=== PATIENT | female | born 1990 | race Caucasian/White ===

== ENCOUNTER 2023-09-07 13:08 | Emergency (ER) | payer OTHER, SELFPAY ==
[2023-09-07 13:15] VITALS: BP 135/98
[2023-09-07 14:54] VITALS: BMI 22.7
[2023-09-07 14:56] VITALS: BP 115/89
[2023-09-07 15:00] VITALS: BP 112/89
[2023-09-07] MEDS: MAALOX 40 PO (15:06)
[2023-09-07 15:14] LABS: % Basophils 0.6 % (0-2); % Eosinophils 0.7 % (0-6); % Immature Granulocytes 0.4 % (0-0.5); % Lymphocytes 27.6 % (20.5-51.1); % Monocytes 4.2 % (1.7-9.3); % Neutrophils 66.5 % (42.2-75.2); Absolute Basophils 0.1 10^3/uL (0-0.2); Absolute Eosinophils 0.1 10^3/uL (0-0.7); Absolute Lymphocytes 2.3 10^3/uL (1.2-3.4); Absolute Monocytes 0.4 10^3/uL (0.1-0.6); Absolute Neutrophils 5.6 10^3/uL (1.4-6.5); Hemoglobin 13.4 g/dL (12.0-16.0); Mean Corp Hgb Conc. 35.3 g/dL (33.0-37.0); Mean Corpuscular Hgb 30.7 pg (27.0-31.0); Mean Platelet Volume 9.2 fL (7.4-10.4); Nucleated Red Blood Cells % 0 %; Platelet Count 342 10^3/uL (130-400); Red Blood Cell Count 4.37 10^6/uL (4.20-5.40); Red Cell Dist. Width 12.8 % (11.5-14.5); White Blood Cell Count 8.5 10^3/uL (4.8-10.8)
--- NOTE | 2023-09-07 15:28 | ED.GENMED ---
History of Present Illness
General
Chief Complaint: Chest Pain
Source: patient
Exam Limitations: none
Time Seen by Provider: 09/07/23 14:00
Nursing documentation reviewed up to this point in time: agreed with
History of Present Illness
History of Present Illness:
33-year-old female presenting to the emergency department today with concerns of chest pain that been going on for the last few hours this morning went to urgent care was found to have a T wave inversion V1 to V2 and was sent to the ER for further
assessment. On arrival here she still having some ongoing chest pressure denies any associated symptoms otherwise have some tingling into her left arm not short of breath no history of recent trauma surgery immobilization. No history of blood
clots no leg swelling.
Review of Systems
Review of Systems
Allergies reviewed?: Yes
All Other Systems: ROS reviewed and negative except as documented in HPI and ROS
Phy Exam
Physical Exam
Physical Exam:
GENERAL: Alert , in no apparent distress
EYE: pupils equal and reactive
NECK: Supple, no significant adenopathy.
ENT: o/p clr, mmm.
CARDIAC: Regular rate and rhythm .
LUNGS: Clear breath sounds bilaterally, no acute respiratory distress, no wheezes/rales/rhonchi
ABDOMEN: Soft, without focal tenderness, no r/g, no cvat
NEUROLOGICAL: Alert and oriented, no focal neuro deficits
SKIN: Warm and dry, skin intact.
MUSCULOSKELETAL: No edema, well perfused.
PSYCH: Normal and appropriate interaction.
Scores
Heart Score for Chest Pain Patients
STEMI patient?: No
History: Slightly or Non-Suspicious
ECG: Normal
Age: </= 45 years
Risk Factors: No Risk Factors
Troponin: </= Normal Limit
Heart Score for Chest Pain Patients: 0
Heart Score Risk: 2.5% MACE over next 6 weeks
Course
Orders/Labs/Results
Orders:
Orders
09/07/23 13:18
Electrocardiogram (*1) Urgent
Reason for Study: Chest Pain
EKG- Treatment ONCE
09/07/23 14:28
Mag Hydrox/Al Hydrox/Simeth [Maalox] 30 ml Phenobarb/Hyoscy/Atropine/Scop [] 10 ml PO NOW
09/07/23 14:29
CR Chest - 2 Views Urgent
Comment:
Reason For Exam: cp
09/07/23 14:52
Mag Hydrox/Al Hydrox/Simeth [Maalox] 30 ml .ROUTE .STK-MED ONE
Phenobarb/Hyoscy/Atropine/Scop [] 10 ml .ROUTE .STK-MED ONE
09/07/23 15:05
Complete Blood Count/With Diff Urgent
Comprehensive Metabolic Panel Urgent
Magnesium Urgent
Troponin I Urgent
09/07/23 15:35
Add On- LAB Urgent
Tests Added?: dimer
09/07/23 16:01
D-Dimer Urgent
Abnormal Lab Results
09/07/23
15:05
Carbon Dioxide 21 L mmol/L
(22-30)
Creatinine 0.5 L mg/dL
(0.6-1.0)
09/07/23 15:05
09/07/23 15:05
Vital Signs
Initial and Last Documented VS:
Initial Vital Signs
Temp Pulse Resp BP Pulse Ox
99.0 F 95 16 135/98 98
09/07/23 13:15 09/07/23 13:15 09/07/23 13:15 09/07/23 13:15 09/07/23 13:15
Last Documented Vital Signs
Temp Pulse Resp BP Pulse Ox
99.0 F 83 17 117/83 97
09/07/23 13:15 09/07/23 16:00 09/07/23 15:30 09/07/23 16:00 09/07/23 15:30
MDM/Problems Addressed
MDM/Problems Addressed:
33-year-old female presenting to the emergency department today with concerns of chest discomfort also T wave inversion of V1 and V2 at urgent care. Upon arrival she had some chest pressure and some tingling into the left arm denies significant
shortness of breath no history of blood clots no recent trauma surgery immobilization. Patient does take control pills. Vital signs normal upon arrival patient is not tachycardic. Dimer negative making PE very unlikely troponin negative
labs unremarkable patient generally well-appearing no acute distress. Patient does appear stable for discharge return precautions given very low risk for emergent pathology. Return precautions given.
*Critical Care Note
Total Time (30-74mins, 75-104mins- exclusive of procedures): Not Applicable
ED Attending Note
-
Portions of this chart may have been created with voice recognition software.� Occasional wrong word or��sound alike� substitutions may have occurred due to the inherent limitations of voice recognition software.
Discharge Plan
Departure
Patient Disposition: Home (Routine Discharge)
Date of Disposition: 09/07/23
Time of Disposition: 17:10
Patient with high blood pressure during this ER visit?: No
Condition: Good
Covid-19: Not Applicable
Discharge Problem:
Chest pain
Instructions: Chest Pain PCP Follow Up
Prescriptions:
No Action
norethindrone-e.estradiol-iron [Aurovela Fe 1-20 (28)] 1 mg-20 mcg (21)/75 mg (7) tablet
1 tab PO DAILY
Referrals:
Jan Garcia MD [Active] - Follow up in 10 days
Dc Cordero CRNP [Family Provider] -
Activity Restrictions/Additional Instructions:
You came to the emergency department today with concerns of chest pain. Here you to reassuring assessment. Please follow closely as an outpatient. Return to the emergency department for any worsening, new or concerning symptoms.
Interventions
Interventions:
*Risk Screen - Suicide Last Done: 09/07/23 14:54
*General Assessment Last Done: 09/07/23 14:54
*Neglect/Abuse Screening Last Done: 09/07/23 14:54
ED- Fall Risk Assessment Last Done: 09/07/23 14:54
*ED COVID-19 Vaccine History Last Done: 09/07/23 14:54
ED- Cardiac Assessment Last Done: 09/07/23 14:54
Discharge Date and Time
Print Language: MOZAMBICAN
[2023-09-07 15:35] LABS: ALT (SGPT) 12 U/L (0-35); AST (SGOT) 20 U/L (14-36); Albumin 4.7 g/dl (3.5-5.0); Alkaline Phosphatase 58 U/L (38-126); Blood Urea Nitrogen 15 mg/dl (7-17); Calcium 9.7 mg/dl (8.4-10.2); Carbon Dioxide 21 mmol/L (22-30); Chloride 105 mmol/L (98-107); Estimated Creatinine Clearance > 125 ml/min; Glucose 84 mg/dl (70-99); Magnesium 2.1 mg/dl (1.6-2.3); Sodium 137 mmol/L (135-145); Total Bilirubin 0.6 mg/dl (0.2-1.3); Total Protein 7.4 g/dl (6.3-8.2); eGFR > 60.00
[2023-09-07 15:37] LABS: Troponin I < 0.012 ng/ml
[2023-09-07 16:00] VITALS: BP 117/83
[2023-09-07 16:18] LABS: D-Dimer 0.28 ug/mlFEU (0.00-0.50)
[2023-09-07 17:00] VITALS: BP 108/79
[2023-09-07] MEDS: TORADOL 15 MG IV (17:33)
== END 2023-09-07 17:43 | disposition home or self-care (01) ==
LOC: EMR 13:08
PROVIDERS: Physician Assistant; EMERGENCY PHYSICIAN Student in an Organized Health Care Education/Training Program; FAMILY PHYSICIAN Nurse Practitioner Family
DX: R07.89 Other chest pain (principal)
CPT/HCPCS: 99283; 96374; 71046; 80053; 83735; 84484; 85025; 85379; 93005